=== PATIENT | male | born 1990 | race Caucasian/White ===

== ENCOUNTER 2022-12-11 08:04 | Outpatient (CLI) | payer OTHER ==
--- NOTE | 2022-12-11 09:28 | SLEEP CARE CONSULTATION ---
Information from patient questionnaire entered by Thi Arana. I have reviewed and concur with the information entered by Thi Arana. This document represents the service I personally performed and the decisions made by me, Demetra Paige ARNP. History of Present Illness Service Date and Time: 12/11/2022 0804 Reason for Visit: New patient Chief Complaint: reports: Unrefreshed sleep, Snoring, Observed pauses in breathing, Fatigue, Frequent awakenings at night Date of Onset: years Usual bedtime: 10 PM Time it takes to fall asleep: 5-10MIN Snores at night: Yes Observed to quit breathing while asleep: Yes Sleeps alone due to snoring: Yes (on/off, will sleep on couch occasionally) Number of times waking at night: 2-3 Reasons for waking at night: reports: Choking, Gasping for air, Bathroom Toss, Turn, or Twitch while sleeping: Yes Recalls having dreams: No (hit or miss) Usually gets out of bed at: 530AM Feels refreshed in the morning: No Morning headache: No Sleepy or fatigued during the day: Yes Ever fallen asleep while driving: No Takes day naps: No Dreams during day naps: Yes Prior sleep studies: No Additional HPI information: I had the pleasure of seeing HÉCTOR COLINDRES today regarding the possibility of him having a sleep disorder. His current complaints are unrefreshed sleep, snoring, observed pauses in breathing, fatigue and frequent night awakenings. He states he has not had a good night's sleep for many years. His tells him he snores loudly and will stop breathing too. He has night terrors with history of PTSD. He has "thrown" himself out of bed and once recently he hit his head. He has been doing this on and off for 7 years. He talks in his sleep and sometimes moans. He has a lot of sleep paralysis which comes and goes in waves. He does not wake up feeling rested. He states he can go to sleep quickly but then wakes up frequently during the night. He has woke himself up feeling like he is choking and also gasping for air. He has a history of ADHD and is on Concerta daily. He denies waking up with headaches. - Parasomnia Symptoms Ever been unable to move upon waking from sleep: Yes (6-8 times in last 6 mon ths) Walks in sleep: No Talks in sleep: Yes (moaning) Ever acted out dreams in sleep: Yes Ever felt weak in the knees when startled or emotional: No Bothered by creepy, crawly, restless sensations in legs: Yes (nightly) Problems with memory or concentration: Yes (both, memory has gotten worse) Subjective Initial [place] Sleepiness Scale score: 7 (12/11/22) Past Medical History Past Medical History: reports: Anxiety, Mood disorder, Attention deficit, Other (ADHD, PTSD, DIVERTICULITIS) Social History The patient's occupation is a AM. Patient is and lives in [place]. Have you smoked in the past 12 months: Yes (trying to quit, down to 1-3 a day) Cigarettes per day (20/pack): 3 Years of smokin Smoking Pack Years: 1.0 Alcohol use: No Caffeine use: Yes Caffeine amount and frequency: 1-3 DAILY Family History Family history of sleep disordered breathing: Yes Family Hx Sleep Apnea: Mother: Snoring, Sleep apnea - Untreated, Father: Snoring, Sleep apnea - Untreated Allergies and Home Medications Known drug allergies: No Drug allergies reviewed: Yes Home medication list reviewed: Yes Allergy and home medication list: Medications: Concerta 54 mg daily Review of Systems Weight gain over past 5 years: 20 Cardiovascular: reports: chest pain (random), irregular heart rate or pulse (random). denies: high blood pressure Respiratory: reports: shortness of breath, wheeze Gastrointestinal: reports: heartburn, abdominal pain Urinary: reports: incontinence Neurological: reports: headaches. denies: head trauma Psychiatric: reports: Attention Deficit Hyperactivity, anxiety, depression Ear/Nose/Throat: reports: nasal congestion, sinus problems (PND), tonsillectomy, wisdom teeth removed Endocrine: reports: sluggishness, excessive thirst. denies: thyroid disease Immunologic: denies: allergies to food or environment Physical Exam Vital signs obtained and entered by: THI Bruce MA Blood Pressure: 136/82 (LEFT ARM) Cuff size: regular Heart Rate: 84 O2 Saturation: 99 Height: 5 ft 10 in Weight: 221 lb Body Mass Index: 31.7 BMI Classification: Obese Neck circumference: 15.5 Mouth and throat: narrow oropharynx Soft palate: long Hard palate: normal Uvula: normal Uvula visualization: 25% Mallampati Class III Tongue: enlarged in size with teeth mayo on lateral edges Tonsils: absent bilaterally Neck: normal w/o lymphadenopathy or thyromegaly Heart: regular rate and rhythm Lungs: clear bilaterally Impression and Plan 1. Suspected Obstructive Sleep Apnea-Hypopnea Syndrome, as suggested by a history of loud and irregular snoring, observed cessation of breath while asleep, gasping or choking in sleep, frequent awakening during the night, unrefreshed sleep, cognitive impairment, and excessive daytime sleepiness. Narrow oropharynx and obesity are common predisposing factors for obstructive sleep apnea-hypopnea syndrome. I recommend proceeding to polysomnography to confirm the diagnosis and to assess severity. If the patient has significant sleep disordered breathing, a manual CPAP titration study will also be performed to find the optimal treatment pressure. I informed the patient of what the sleep studies involve and after some discussion, obtained agreement to proceed. The pathophysiology of obstructive sleep apnea-hypopnea syndrome was discussed with the patient and health risks of cardiovascular and cerebrovascular disease if not treated. Risks of drowsy driving discussed in detail and patient advised to avoid long distance driving and to pull up hand at the first sign of drowsiness. Patient agreed to plan. * Schedule polysomnography +- manual CPAP titration study and return in 1-2 weeks after the study to discuss result and initiate therapy. * Avoid long distance driving or driving when feeling sleepy. * Avoid alcohol, sedative and muscle relaxant around bedtime. * Attempt to lose weight. * Review instructions provided by trained office staff on how to prepare for the sleep study. * Return for follow-up after sleep study completed. Counseling Topics: Weight loss health impact Visit Type: In Office Time Spent with Patient (minutes): 30 Provider Statement: I spent 100% of the Face to Face Visit with the patient with greater than 50% spent counseling the patient and coordination of care.
[2022-12-11 09:33] VITALS: BP 136/82
== END 2022-12-11 08:05 | disposition home or self-care (01) ==
LOC: SC 08:04
PROVIDERS: ATTEND Nurse Practitioner Family
DX: R06.83 Snoring (principal); G47.8 Other sleep disorders; R06.81 Apnea, not elsewhere classified; R53.83 Other fatigue; G47.10 Hypersomnia, unspecified; R41.89 Other symptoms and signs involving cognitive functions and awareness; E66.9 Obesity, unspecified; Z68.31 Body mass index [BMI] 31.0-31.9, adult; F51.4 Sleep terrors [night terrors]; G47.53 Recurrent isolated sleep paralysis
CPT/HCPCS: 99203; 99212

== ENCOUNTER 2023-01-03 20:37 | Outpatient (CLI) | payer OTHER | END 2023-01-03 20:38 | disposition home or self-care (01) | LOC: SC 20:37 | PROVIDERS: ATTEND Nurse Practitioner Family | DX: G47.52 REM sleep behavior disorder (principal); G47.61 Periodic limb movement disorder | CPT/HCPCS: 95810 ==